=== PATIENT | female | born 1970 | race Hispanic/Latino ===

== ENCOUNTER 2025-01-26 17:18 | Emergency (ER) | payer SELFPAY ==
[~2025-01-26] VITALS: Ht 170.2 cm; Wt 126.1 kg
--- NOTE | 2025-01-26 17:43 | ERN ---
ED Note History of Present Illness Stated Complaint: FACIAL/ NECK PAIN Chief Complaint: Face Pain/Problem Time Seen by MD: 17:25 Time Seen by Midlevel: 17:25 Dictation: The patient is a 54-year-old female with a history of hypertension noncompliant with medication who presents to the emergency department with complaints of left side lower toothache that radiates to the jaw. Patient denies any trauma but reports one of her fillings fell off two days ago. No fevers reported. Patient also reports of elevated blood pressure and dizziness. Reports that she has been under a lot of stress. Allergies: Coded Allergies: Penicillins (Unverified Allergy, Unknown, 01/26/25) Past Medical History Past Medical History: Hypertension Surgical History: BTL Surgical History Other: FIBROIDS SX RN Note Reviewed/Agreed w/PFSH: Yes Review of System Dictation Constitutional: Negative for fever,chills, and weight loss Eyes: Negative for injury, pain,redness, and discharge ENT: Negative for injury,pain or swelling positive for left two days Cardiovascular: Negative for chest pain, palpitations, and edema Respiratory: Negative for shortness of breath, cough, and wheezing, Abdomen/GI: Negative for abdominal pain, nausea, vomiting, diarrhea, and constipation Back: Negative for injury and pain : Negative for injury, bleeding and discharge MS/Extremity: Negative for injury and deformity Skin: Negative for rash, and discoloration Neuro: Negative for headache, weakness, numbness, tingling, and seizure positive for dizziness Psych: Negative for suicide ideation, homicidal ideation, and hallucinations Initial Vital Sign VS Vital Signs Date Time Temp Pulse Resp B/P (MAP) Pulse Ox O2 Delivery O2 Flow Rate FiO2 01/26/25 17:24 99.0 18 200/111 99 Room Air 0 01/26/25 17:34 87 21 Physical Exam Dictation Vital Signs reviewed General Appearance: Alert, oriented x 3, no acute distress, well developed, nourished. Head and Face: non-traumatic. Eyes: PERRL, pink conjunctivas, eyelid no trauma, anterior chamber with arcus senilis. Ears: Pinnas intact and no signs of trauma or erythema ear canals clear and no discharge TM no erythema Nose: No discharge, no bleeding. Oropharynx: Mouth normal, tongue pink. pharynx clear,no erythema, tonsils no exudates, no abscesses noted, mucous membrane moist Neck: Supple, non-tender, no thyromegaly, no masses, no JVD, no bruits Breast:Deferred Chest:No tenderness, no crepitus, no paradoxical movement, no retractions Lungs:Clear, well-ventilated, symmetric, no rales, no wheezing, no rhonchi, no stridor, good breath sounds bilaterally Heart: Regular rate, regular rhythm, no murmur, no gallops Vascular: no peripheral edema, Abdomen: Soft, positive bowel sounds, nondistended, no guarding, nontender, no rebound, no masses no hepatomegaly, no splenomegaly, no Burt's sign, no hernias. Rectal: Deferred Genital: Deferred Neurological: Normal speech, motor function intact, sensory function intact , upper extremities equal in strength, lower extremities equal in strength. Musculoskeletal: Neck nontender, full range of motion, back nontender, full range of motion, Extremities: nontender, full range of motion Skin: Color pink, dry, no turgor, no rash, no lacerations, no abrasions, no contusions. Lymphatic: Deferred Results (Laboratory/Radiology) Laboratory/Radiology Laboratory Tests Test 01/26/25 17:52 White Blood Count 8.1 K/uL (4.8-10.8) Red Blood Count 5.15 MIL/uL (4.00-5.50) Hemoglobin 14.7 g/dL (12.0-16.0) Hematocrit 44.4 % (36-48) Mean Corpuscular Volume 86.2 fL (79-99) Mean Corpuscular Hemoglobin 28.5 pg (27.0-33.0) Mean Corpuscular Hemoglobin Concent 33.1 g/dL (32.0-36.0) Red Cell Distribution Width 13.5 % (11.0-15.5) Platelet Count 246 K/uL (130-400) Mean Platelet Volume 11.3 fL (7.5-10.5) H Immature Granulocyte % (Auto) 0.5 % (0-1) Neutrophils (%) (Auto) 62.7 % (40.0-77.0) Lymphocytes (%) (Auto) 25.1 % (21.0-51.0) Monocytes (%) (Auto) 8.1 % (3.0-13.0) Eosinophils (%) (Auto) 2.7 % (0.0-8.0) Basophils (%) (Auto) 0.9 % (0.0-5.0) Neutrophils # (Auto) 5.1 K/uL (1.8-7.7) Lymphocytes # (Auto) 2.0 K/uL (1.0-4.8) Monocytes # (Auto) 0.7 K/uL (0.1-1.0) Eosinophils # (Auto) 0.22 K/uL (0.00-0.70) Basophils # (Auto) 0.07 K/uL (0.00-0.20) Absolute Immature Granulocyte (auto 0.04 K/uL (0-1) Nucleated Red Blood Cells 0.0 % (0.0-0.19) Sodium Level 144 mmol/L (136-145) Potassium Level 3.9 mmol/L (3.5-5.1) Chloride Level 106 mmol/L (101-111) Carbon Dioxide Level 25 mmol/L (21-32) Blood Urea Nitrogen 23 mg/dL (7-18) H Creatinine 1.3 mg/dL (0.5-1.0) H Glomerular Filtration Rate Calc 48 mL/min (>90) Random Glucose 246 mg/dL (70-105) H Total Calcium 8.8 mg/dL (8.5-10.1) Total Creatine Kinase 129 U/L (21-232) Troponin I High Sensitivity < 4 ng/L (4-50) L REASON: dizzy ORDERING PHYSICIAN: CRISS AMAYA PROCEDURE: HEAD WO - CT HEAD/BRAIN W/O CONTRAST EXAM: CT Head Without IV contrast. CLINICAL HISTORY: Patient presents with dizziness. TECHNIQUE: Axial computed tomography images of the head/brain without intravenous contrast. COMPARISON: None provided. FINDINGS: BRAIN: Periventricular and bilateral frontal hypodensities concerning for chronic microangiopathic ischemic changes. Mild diffuse cerebral atrophy with prominence of the cortical sulci and bilateral sylvian fissures. No acute hemorrhage, mass lesion, or CT evidence of acute territorial infarct. No midline shift or extra-axial collections. VENTRICLES: No hydrocephalus. ORBITS: The orbits are unremarkable. SINUSES AND MASTOIDS: The paranasal sinuses and mastoid air cells are clear. BONES: No fracture. SOFT TISSUES: Unremarkable. IMPRESSION: Chronic microangiopathic ischemic changes. Mild cerebral atrophy. No acute intracranial abnormality. /[place] REASON: dizzy ORDERING PHYSICIAN: CRISS AMAYA PROCEDURE: CXR1VW - CHEST 1VW EXAM: CR Chest, 1 View. CLINICAL HISTORY: dizzy COMPARISON: None provided. FINDINGS: LUNGS: There is no mass, infiltrate, or acute pulmonary abnormality. PLEURAL SPACES: Blunting of the right costophrenic angle may reflect a small right pleural effusion. No pneumothorax. MEDIASTINUM: Mild cardiomegaly. Pulmonary vasculature and interstitial markings are within normal limits. BONES: No acute osseous abnormality. IMPRESSION: 1. Small right pleural effusion. 2. Mild cardiomegaly. 3. No other acute cardiopulmonary findings. /[place] Labs Reviewed?: Yes EKG: (+) rhythm (Sinus rhythm) EKG Comment: Date:01/26/2025 Time:1755 Ventricular rate:77 [place] interval:183 QRS duration:85 QT/QTc:395 EKG interpretation: Sinus rhythm Reviewed by ED Attending no STEMI ED Course ED Course Orders Procedure Category Date Status Time Cbc With Differential LAB 01/26/25 Complete 17:37 Chest 1vw RAD 01/26/25 Resulted 17:37 12 Lead Ekg Tracing- EKG 01/26/25 Complete Technical 17:37 Troponin I High LAB 01/26/25 Complete Sensitivity 17:37 Basic Metabolic Panel LAB 01/26/25 Complete 17:37 Morphine 4mg Syg PHA 01/26/25 Complete (Morphine 4mg Syg) 18:00 Ondansetron 4mg Inj PHA 01/26/25 Complete (Zofran 4mg Inj) 18:00 Ct Head/Brain W/O CT 01/26/25 Resulted Contrast 18:21 Creatine Kinase, Total LAB 01/26/25 Complete 18:21 0.9%Nacl 1000ml (Ns PHA 01/26/25 Complete 1000ml) 18:30 Clindamycin 150mg Cap PHA 01/26/25 Complete (Cleocin 150mg Cap 18:30 Current Medications Medications (Trade) Dose Ordered Sig/Crissy Route PRN Reason Start Time Stop Time Status Last Admin Dose Admin Clindamycin HCl (Cleocin 150mg Cap) 300 mg ONCE ONCE PO 01/26/25 18:30 01/26/25 18:31 DC 01/26/25 18:35 Morphine Sulfate (morPHINE 4MG SYG) 4 mg ONCE ONCE IVP 01/26/25 18:00 01/26/25 18:01 DC 01/26/25 18:35 Ondansetron HCl (zoFRAN 4MG INJ) 4 mg ONCE ONCE IVP 01/26/25 18:00 01/26/25 18:01 DC 01/26/25 18:35 Sodium Chloride 1,000 ml @ 0 mls/hr ONCE ONCE IV 01/26/25 18:30 01/26/25 18:31 DC 01/26/25 18:35 Vital Signs Date Time Temp Pulse Resp B/P (MAP) Pulse Ox O2 Delivery O2 Flow Rate FiO2 01/26/25 19:16 99.0 82 18 162/89 99 Room Air* 0 21 01/26/25 17:34 99.0 87 18 200/111 98 Room Air* 0 21 01/26/25 17:24 99.0 18 200/111 99 Room Air 0 Medical Decision Making MDM The patient is a 54-year-old female with a history of hypertension noncompliant with medication who presents to the emergency department with complaints of left side lower toothache that radiates to the jaw. Patient denies any trauma but reports one of her fillings fell off two days ago. No fevers reported. Patient also reports of elevated blood pressure and dizziness. Reports that she has been under a lot of stress. CBC showed no leukocytosis, no anemia, chemistry showed mildly elevated blood glucose, creatinine of 1.3. Patient received IV fluids in ER. CT head showed no acute intracranial abnormality. Chest x-ray showed small right pleural effusion. Patient with no shortness of breath. Instructed to continue to follow up with her primary doctor. On physical exam patient is in no acute distress, reports feeling better after medication administration. Blood pressure improved after pain medications. Patient with tooth decay on the left lower side. Patient instructed to follow up with PCP and dentist. Labs and imaging discussed with the patient who agrees to be discharged and follow up with PCP. Differential diagnosis: toothache, dehydration, acs, electrolyte imbalance Need for hospitalization: Patient does not meet criteria for hospitalization. There are no social concerns with this patient. DX & DISP Disposition: Discharge Departure Impression: Primary Impression: Mild dehydration Additional Impressions: Tooth decay, Uncontrolled hypertension, Elevated blood sugar Condition: Stable Scripts Clindamycin HCl (Clindamycin HCl) 300 Mg Capsule 1 CAP PO QID for 5 Days, #20 CAP 0 Refills Prov: CRISS AMAYA 01/26/25 Additional Instructions: Your labs showed you were a little dehydrated. Continue hydration at home. Follow up with your dentist and take your medications as prescribed. If anything worsens please return to ER. FOLLOW-UP WITH PRIMARY CARE PROVIDER IN 1 TO 2 DAYS. TAKE MEDICATIONS DIRECTED HERE IN THE EMERGENCY ROOM. OKAY TO CONTINUE HOME MEDICATIONS UNLESS OTHERWISE DISCUSSED DURING YOUR VISIT IN THE EMERGENCY ROOM TODAY. RETURN TO YOUR NEAREST EMERGENCY ROOM IF SYMPTOMS WORSEN OR IF THERE IS NO IMPROVEMENT. CALL 911 IF YOU NEED IMMEDIATE ASSISTANCE. TAKE TYLENOL [id number] NEEDED AND IF NO CONTRAINDICATIONS ARE PRESENT. INCREASE ORAL HYDRATION. A WOUND CULTURE OR URINE CULTURE WAS ORDERED HERE IN THE EMERGENCY ROOM DEPARTMENT PLEASE FOLLOW-UP WITH PRIMARY CARE PROVIDER AND ADVISE THEM TO GET REPEAT PORTS FROM OUR FACILITY. IF YOU HAD ANY INGRIS WRAP/SPLINTS THAT WERE APPLIED HERE, P SHANA DO NOT REMOVE THEM UNTIL YOU SEE YOUR PRIMARY CARE OR SPECIALTY. Referrals: SELF,REFERRAL (PCP) Time of Disposition: 20:27 I have reviewed the case, and I agree with, Diagnosis and Plan CRISS AMAYA Jan 26, 2025 17:43
[2025-01-26 17:58] LABS: IMMATURE GRANULOCYTE ABSOLUTE 0.04 K/uL (0-1); NUCLEATED RED BLOOD CELLS 0.0 % (0.0-0.19); PLATELET COUNT (AUTO) 246 K/uL (130-400); RED BLOOD CELL COUNT(AUTO) 5.15 MIL/uL (4.00-5.50); RED CELL DISTRIBUTION WIDTH 13.5 % (11.0-15.5); WHITE BLOOD COUNT (AUTO) 8.1 K/uL (4.8-10.8)
--- NOTE | 2025-01-26 17:58 | EKG ---
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
[2025-01-26 18:06] LABS: CREATININE 1.3 mg/dL (0.5-1.0); GLOMERULAR FILTR. RATE CALC 48.0 mL/min (>90); GLUCOSE,RANDOM 246.0 mg/dL (70-105); SODIUM SERUM 144.0 mmol/L (136-145); UREA NITROGEN, BLOOD 23.0 mg/dL (7-18)
[2025-01-26] MEDS: 0.9%NACL 1000ML 1,000 ML IV ONE (18:35)
[2025-01-26] MEDS: CLINDAMYCIN 150 MG CAP PO ONE (18:35)
--- NOTE | 2025-01-26 19:04 | HMCIMG ---
EXAM: CR Chest, 1 View. CLINICAL HISTORY: dizzy COMPARISON: None provided. FINDINGS: LUNGS: There is no mass, infiltrate, or acute pulmonary abnormality. PLEURAL SPACES: Blunting of the right costophrenic angle may reflect a small right pleural effusion. No pneumothorax. MEDIASTINUM: Mild cardiomegaly. Pulmonary vasculature and interstitial markings are within normal limits. BONES: No acute osseous abnormality. IMPRESSION: 1. Small right pleural effusion. 2. Mild cardiomegaly. 3. No other acute cardiopulmonary findings. /[place]
--- NOTE | 2025-01-26 20:08 | HMCIMG ---
EXAM: CT Head Without IV contrast. CLINICAL HISTORY: Patient presents with dizziness. TECHNIQUE: Axial computed tomography images of the head/brain without intravenous contrast. COMPARISON: None provided. FINDINGS: BRAIN: Periventricular and bilateral frontal hypodensities concerning for chronic microangiopathic ischemic changes. Mild diffuse cerebral atrophy with prominence of the cortical sulci and bilateral sylvian fissures. No acute hemorrhage, mass lesion, or CT evidence of acute territorial infarct. No midline shift or extra-axial collections. VENTRICLES: No hydrocephalus. ORBITS: The orbits are unremarkable. SINUSES AND MASTOIDS: The paranasal sinuses and mastoid air cells are clear. BONES: No fracture. SOFT TISSUES: Unremarkable. IMPRESSION: Chronic microangiopathic ischemic changes. Mild cerebral atrophy. No acute intracranial abnormality. /[place]
[2025-01-26] MEDS ORDERED: CLIN-141 PO (20:28)
[2025-01-26 20:51] VITALS: BP 154/82; PULSE 87; RESP 18; TEMP 99; O2SAT 99
== END 2025-01-26 20:52 | disposition home or self-care (01) ==
LOC: EDH 17:18
DX: E86.0 Dehydration (principal); I10 Essential (primary) hypertension; R73.9 Hyperglycemia, unspecified; K02.9 Dental caries, unspecified; Z98.51 Tubal ligation status; Z88.0 Allergy status to penicillin
CPT/HCPCS: 99285; 96374; 70450; 71045; 96375; 82550; 84484; 80048; 85025; 36415; 93005; J7030; J2405; J2270